=== PATIENT | male | born 1990 | race Caucasian/White ===

== ENCOUNTER 2019-05-17 08:43 | Emergency (ER) | payer BC ==
[~2019-05-17] VITALS: Ht 185.4 cm; Wt 110.0 kg
[~2019-05-17 08:43] MED LIST: ADDERALL20 MG PO; ALEVE 220MG220 MG PO; AMOXICILLIN 50500 MG PO; AMOXICILLIN 8751 TAB PO; ASPIRIN 32325 MG/TAB PO; BENADRYL25 M2 PO; BENADRYL50 MG PO; BETIMOL 0.5% OPH5 ML OU; CALAN120 MG PO; CEPHALEXIN500 M1 PO; CLEOCIN HC150 MG/CAP PO; CLEOCIN HCL300 MG PO; DEPAKOTE ER 50500 MG PO; DILAUDID 4MG TAB4 MG PO; FLEXERIL 1010 MG/TAB PO; FOLIC ACID 11 MG/TA1 PO; IMITREX100 MG PO; INDOCIN 25MG CA25 MG PO; KLONOPIN 0.5MG0.5 MG PO; KLONOPIN WAFER0.5 MG PO; LIORESAL 1010 MG/TAB PO; LORTAB 5/500 501 TAB PO; MAG-OX 400400 MG/TAB PO; METHADONE H10 MG/TAB PO; MORPHINE 1515 MG/TAB PO; MOTRIN 600600 MG/TAB PO; MOTRIN 800800 MG/TAB PO; MS CONTIN 115 MG/TAB PO; NAPROSYN 2250 MG/TAB PO; NAPROSYN500 MG PO; NATURAL MAGNES200 MG PO; NATURE'S BLEND100 M1 PO; NO HOME MEDICATIONS; NORCO 325 MG-51 TAB PO; NORCO 325 MG-7.1 TAB PO; NORVASC 5MG5 MG/TAB PO; PEN-VEE K500 MG PO; PEPCID 20MG TAB20 MG PO; PERCOCET 325 MG1 TA2 PO; PHENERGAN 25 TA25 MG PO; PREDNISONE20 MG PO; PRINZIDE 25 MG-1 TAB PO; PROMETHAZINE12.5 M5 PO; REGLAN10 MG PO; REMERON30 MG PO; RIBOFLAVIN PO; ROXICODONE 55 MG/TAB PO; THIAMINE 1100 MG/TAB PO; TRIAMCINOLONE0.1% TP; TYLENOL 500MG500 MG PO; TYLENOL EXTRA500 M1 PO; VISTARIL50 MG PO; VOLTAREN SR25 MG/TAB; VYVANSE70 MG PO; XANAX .25M0.25 MG/TA PO; XANAX 1MG1 MG PO; XANAX2 MG PO; ZANTAC 150MG T150 MG PO; ZOFRAN 4MG T4 MG/TAB PO; ZOFRAN ODT4 MG PO; ZOFRAN ODT8 MG PO
[2019-05-17 08:45] VITALS: BP 153/96; TEMP 98.6
[2019-05-17] MEDS ORDERED: METHADONE10 MG/5 M1 PO (08:54)
[2019-05-17] MEDS ORDERED: FLEXERIL 1010 MG/TAB PO (09:08)
[2019-05-17] MEDS ORDERED: LIDODERM 5% PATC1 EA TP (09:09)
[2019-05-17] MEDS ORDERED: PREDNISONE20 MG PO (09:09)
[2019-05-17 09:37] VITALS: PULSE 89
== END 2019-05-17 09:40 | disposition home or self-care (01) ==
LOC: COL.ER 08:43
DX: M54.5 Low back pain (principal)
CPT/HCPCS: J1885; J7512

== ENCOUNTER 2019-08-23 17:19 | Emergency (ER) | payer BC ==
[~2019-08-23] VITALS: Ht 185.4 cm; Wt 106.8 kg
[~2019-08-23 17:19] MED LIST changes: +LIDODERM 5% PATC1 EA TP; +METHADONE10 MG/5 M1 PO
[2019-08-23 17:31] VITALS: BP 165/94; TEMP 97.8
[2019-08-23] MEDS ORDERED: CLEOCIN HCL300 MG PO (18:45)
[2019-08-23] MEDS ORDERED: ZESTORETIC 12.51 TA1 PO (18:46)
[2019-08-23 19:34] VITALS: PULSE 82
== END 2019-08-23 19:36 | disposition home or self-care (01) ==
LOC: COL.ER 17:19
DX: K08.89 Other specified disorders of teeth and supporting structures (principal); I10 Essential (primary) hypertension; Z88.6 Allergy status to analgesic agent
CPT/HCPCS: J1885

== ENCOUNTER 2019-11-17 07:39 | Emergency (ER) | payer BC ==
[~2019-11-17] VITALS: Ht 185.4 cm; Wt 113.6 kg
[~2019-11-17 07:39] MED LIST changes: +ZESTORETIC 12.51 TA1 PO
[2019-11-17 07:44] VITALS: TEMP 98.2
[2019-11-17] MEDS ORDERED: PHENERGAN 25 TA25 MG PO (08:29)
[2019-11-17 08:46] VITALS: BP 138/103; PULSE 104
== END 2019-11-17 08:48 | disposition home or self-care (01) ==
LOC: COL.ER 07:39
DX: F11.23 Opioid dependence with withdrawal (principal); Z90.89 Acquired absence of other organs

== ENCOUNTER 2020-04-22 10:16 | Emergency (ER) | payer BC ==
[~2020-04-22] VITALS: Ht 185.4 cm; Wt 109.1 kg
[2020-04-22 10:21] VITALS: BP 147/112; TEMP 98.3
[2020-04-22] MEDS ORDERED: SOMA 350MG350 MG/TAB PO (10:37)
[2020-04-22] MEDS ORDERED: METHADOSE40 MG PO ×2 (10:39→10:42)
[2020-04-22 11:20] VITALS: PULSE 74
== END 2020-04-22 11:20 | disposition home or self-care (01) ==
LOC: COL.ER 10:16
DX: M79.645 Pain in left finger(s) (principal); Z88.6 Allergy status to analgesic agent